=== PATIENT | female | born 1945 | race Caucasian/White ===

== ENCOUNTER 2020-10-31 08:59 | Day surgery (SDC) | payer OTHER, BC ==
[2020-10-19 12:36] VITALS: BMI 25.8
[2020-10-31] MEDS: CIPROFLOXACIN 0.3% EYE DROPS 5 ML BOTTLE ONE ×3 (09:50→10:00)
[2020-10-31] MEDS: PHENYLEPHRINE 2.5% OPHTH SOLN 15 ML BOTTLE ONE ×3 (09:50→10:00)
[2020-10-31] MEDS: CYCLOPENTOLATE 2% OPHTH SOLN 2 ML BOTTLE ONE ×3 (09:50→10:00)
[2020-10-31] MEDS: TROPICAMIDE 1% OPHTH SOLN 15 ML BOTTLE ONE ×3 (09:50→10:00)
[2020-10-31] MEDS ORDERED: MIDAZOLAM HCL 2 MG/2 ML SINGLE DOSE VIAL ONE (10:51)
[2020-10-31] MEDS ORDERED: BSS (NA/CA/MG/K) BALANCED SALT SOLUTION OPHTH SOLN 15 ML BOTTLE ONE (12:16)
[2020-10-31] MEDS ORDERED: LIDOCAINE 1% P/F 10 MG/ML VIAL ONE (12:16)
[2020-10-31] MEDS ORDERED: EPINEPHrine/PF 1 MG/1 ML (1:1,000) AMPULE ONE (12:16)
[2020-10-31] MEDS ORDERED: CARBACHOL 0.01% INTRA-OCULAR 1.5 ML VIAL ONE (12:16)
[2020-10-31] MEDS ORDERED: NEO/POLYMYX B SULF/DEXAMETH OPHTHALMIC 5ML BOTTLE ONE (12:16)
[2020-10-31] MEDS ORDERED: TETRACAINE 0.5% OPHTH SOLN 2 ML BOTTLE ONE (12:16)
[2020-10-31 14:48] VITALS: TEMP 98
[2020-10-31 15:05] VITALS: BP 108/60; PULSE 78
== END 2020-10-31 11:50 | disposition home or self-care (01) ==
LOC: FASU 08:59
PROVIDERS: ATTEND Ophthalmology
PROC: 08RJ3JZ Replacement of Right Lens with Synthetic Substitute, Percutaneous Approach (ICD-10-PCS; principal; 2020-10-31 11:08)
DX: H26.8 Other specified cataract (principal)

== ENCOUNTER 2020-11-14 07:55 | Day surgery (SDC) | payer OTHER, BC ==
[2020-11-12 17:13] VITALS: BMI 25.8
[2020-11-14] MEDS: TROPICAMIDE 1% OPHTH SOLN 15 ML BOTTLE ONE ×3 (08:20→08:30)
[2020-11-14] MEDS ORDERED: PHENYLEPHRINE 2.5% OPHTH SOLN 15 ML BOTTLE OS ONE ×3 (08:20→08:30)
[2020-11-14] MEDS: CYCLOPENTOLATE 2% OPHTH SOLN 2 ML BOTTLE ONE ×3 (08:20→08:30)
[2020-11-14] MEDS: CIPROFLOXACIN HCL 0.3% OPHTH 2.5ML BOTTLE ONE ×3 (08:20→08:30)
[2020-11-14] MEDS ORDERED: MIDAZOLAM HCL 2 MG/2 ML SINGLE DOSE VIAL ONE (10:00)
[2020-11-14] MEDS ORDERED: LIDOCAINE 1% P/F 10 MG/ML VIAL ONE (10:02)
[2020-11-14] MEDS ORDERED: BSS (NA/CA/MG/K) BALANCED SALT SOLUTION OPHTH SOLN 15 ML BOTTLE ONE (10:02)
[2020-11-14] MEDS ORDERED: TETRACAINE 0.5% OPHTH SOLN 2 ML BOTTLE ONE (10:02)
[2020-11-14] MEDS ORDERED: NEO/POLYMYX B SULF/DEXAMETH OPHTHALMIC 5ML BOTTLE ONE (10:03)
[2020-11-14] MEDS ORDERED: CARBACHOL 0.01% INTRA-OCULAR 1.5 ML VIAL ONE (10:03)
[2020-11-14 11:22] VITALS: TEMP 97.8
[2020-11-14 11:24] VITALS: BP 116/57; PULSE 72
== END 2020-11-14 11:50 | disposition home or self-care (01) ==
LOC: FASU 07:55
PROVIDERS: ATTEND Ophthalmology
PROC: 08RK3JZ Replacement of Left Lens with Synthetic Substitute, Percutaneous Approach (ICD-10-PCS; principal; 2020-11-14 10:22)
DX: H26.8 Other specified cataract (principal)